=== PATIENT | male | born 1980 | race Caucasian/White ===

== ENCOUNTER 2020-01-22 12:03 | Inpatient (IN) | payer SELFPAY ==
[~2020-01-22] VITALS: Ht 177.8 cm; Wt 212.6 kg
[2020-01-22 13:11] LABS: BASO % 1 % (0-3); EOS # 0.1 x10^3/uL (0.0-0.7); EOS % 1 % (0-3); HEMATOCRIT 59.1 % (39.0-53.0); HEMOGLOBIN 19.4 g/dL (13.0-17.5); LYMPH # 1.6 x10^3/uL (1.0-4.8); LYMPH % 19 % (24-48); MEAN CORPUSCULAR HEMOGLOBIN 32 pg (25-35); MEAN CORPUSCULAR HGB CONC 33 g/dL (31-37); MEAN CORPUSCULAR VOLUME 96 fL (79-100); MONO # 0.7 x10^3/uL (0.0-1.1); MONO % 9 % (0-9); NEUT # 5.9 x10^3/uL (1.8-7.7); NEUT % 70 % (31-73); PLATELET COUNT 166 x10^3/uL (140-400); RED BLOOD COUNT 6.16 x10^6/uL (4.30-5.70); RED CELL DISTRIBUTION WIDTH 15.1 % (11.5-14.5); WHITE BLOOD COUNT 8.3 x10^3/uL (4.0-11.0)
[2020-01-22 13:15] LABS: BILIRUBIN,URINE NEGATIVE (NEG); CLARITY,URINE CLEAR; COLOR,URINE YELLOW; NITRITE,URINE NEGATIVE (NEG); PROTEIN,URINE >=300 mg/dL (NEG-TRACE); UROBILINOGEN,URINE 0.2 mg/dL (0.2 mg/dL)
--- NOTE | 2020-01-22 13:17 | RAD ---
CHEST AP ONLY History: Reason: n/v/d, PUI / Spl. Instructions: / History: Comparison: None. Findings: Evaluation is degraded by patient body habitus and technique. Patchy mid and bibasilar opacities. No definite pleural effusion. No pneumothorax. Portable technique accentuates cardiac size. Impression: 1. Patchy mid and bibasilar opacities, may represent atelectasis or consolidations. Electronically signed by: Mirza Richards DO (01/22/2020 1:15 PM) [id number]
[2020-01-22 13:26] LABS: BACTERIA,URINE 0 /HPF (0-FEW); HYALINE CASTS, URINE MANY /HPF; SQUAMOUS EPITHELIAL CELL,UR MOD /LPF
[2020-01-22 13:28] LABS: AMORPHOUS SEDIMENT,UR PRESENT /HPF; GRANULAR CASTS,URINE FEW /HPF; RBC,URINE OCC /HPF (0-2)
[2020-01-22 13:47] LABS: CALCIUM 9.3 mg/dL (8.5-10.1); GFR 84.1; POTASSIUM 4.3 mmol/L (3.5-5.1)
[2020-01-22 14:07] LABS: ALBUMIN 2.3 g/dL (3.4-5.0); ALBUMIN/GLOBULIN RATIO 0.6 (1.0-1.7); C-REACTIVE PROTEIN 5.4 mg/L (0-3.3); MAGNESIUM 1.8 mg/dL (1.8-2.4); TOTAL BILIRUBIN 0.6 mg/dL (0.2-1.0); TOTAL PROTEIN 5.9 g/dL (6.4-8.2)
[2020-01-22] MEDS ORDERED: IOHEXOL 350 MG/ML 100 ML VIAL. ONE (14:22)
--- NOTE | 2020-01-22 15:19 | RAD ---
DUPLEX LOWER EXTREMITY BILAT Indication: Reason: bilateral lower extremity discoloration and cool / Spl. Instructions: / History: Comparison: None. Procedure: Real-time grayscale, color flow Doppler, and Doppler spectral waveform analysis of the arterial system of the lower extremity is performed. Findings: Normal triphasic waveforms are present in the common femoral artery, superficial femoral artery, popliteal artery, anterior tibial artery and posterior tibial artery. Right dorsalis pedis artery not visualized, may relate to technique or patient body habitus. No evidence of velocity elevation to suggest stenosis. IMPRESSION: 1. No hemodynamically significant arterial stenosis. Electronically signed by: Mirza Richards DO (01/22/2020 3:16 PM) [id number]
--- NOTE | 2020-01-22 16:00 | PHYS DOC ---
Past Medical History Past Medical History: Hypertension, Other Additional Past Medical Histor: PSORIASIS Past Surgical History: No Surgical History Smoking Status: Current Every Day Smoker Alcohol Use: None General Adult EDM: Chief Complaint: GI PROBLEM HPI: HPI: Patient is a 39 year old morbidly obese male who presents to the emergency department with complaints of increased swelling in his abdomen and shortness of breath for the last 5 days. He reports that he smokes a pack and a half of c igarettes a day and is a concrete mixing truck driver. He denies any known exposure to COVID-19. The patient denies any fever, chills, cough, hemoptysis, dizziness, headache, sore throat, nausea, vomiting, or diarrhea. Patient reports that he took some stool softeners because he thought he might be constipated and that is why his abdomen was bloated. He denies any pain he states that his entire body feels bloated. Review of Systems: Review of Systems: Constitutional: Denies fever or chills. [] HENT: Denies nasal congestion or sore throat. [] Respiratory: Denies cough; see HPI Cardiovascular: Denies chest pain; see HPI GI: Denies nausea, vomiting, bloody stools or diarrhea; see HPI. [] : Denies dysuria or hematuria. [] Musculoskeletal: Denies back pain or joint pain. [] Integument: Reports problems with chronic psoriasis has a dry, red, scaly rash all over his entire body Neurologic: Denies headache, focal weakness or sensory changes. [] Psychiatric: Denies depression or anxiety. [] Complete ROS is negative unless otherwise stated in the HPI. Heart Score: Risk Factors: Risk Factors: DM, Current or recent (<one month) smoker, HTN, HLP, family history of CAD, obesity. Risk Scores: Score 0 - 3: 2.5% MACE over next 6 weeks - Discharge Home Score 4 - 6: 20.3% MACE over next 6 weeks - Admit for Clinical Observation Score 7 - 10: 72.7% MACE over next 6 weeks - Early Invasive Strategies Current Medications: Current Medications Medications (Trade) Dose Ordered Sig/Ely Start Time Stop Time Status Last Admin Dose Admin Iohexol (Omnipaque 350 Mg/ml) 100 ml STK-MED ONCE 01/22/20 14:22 01/22/20 14:22 DC Allergies: Allergies: Allergies Coded Allergies Type Severity Reaction Last Updated Verified naproxen Allergy Unknown 01/22/20 Yes Physical Exam: PE: Constitutional: Well developed, well nourished, moderate distress, ill- appearing, morbidly obese, patient prefers to sit straight up in a near tripod position HENT: Normocephalic, atraumatic, bilateral external ears normal, nose normal. [] Eyes: PERRLA, EOMI, conjunctiva normal, no discharge. [] Neck: Normal range of motion, no stridor. [] Cardiovascular:Heart rate regular tachycardic rhythm, no murmur Lungs & Thorax: Respirations labored, moderate respiratory distress, lung sounds diminished throughout, no wheezing, speaking full sentences Abdomen: Firm and distended with active bowel sounds x4 quadrants Skin: Warm, dry, dry flaky rash noted to face, back, trunk, chest, and extremities x4 consistent with patient's reported psoriasis Extremities: Bilateral feet appear cyanotic with weak palpable pedal pulses, no obvious deformity, cap refill less than 3 seconds, patient's lower extremities are cool to touch however when the patient is repositioned perfusion seems to improve Neurologic: Alert and oriented X 4, no focal deficits noted. [] Psychologic: Affect normal, judgement normal, mood normal. [] Current Patient Data: Labs: Laboratory Tests Test 01/22/20 13:00 01/22/20 13:27 White Blood Count 8.3 x10^3/uL (4.0-11.0) Red Blood Count 6.16 x10^6/uL (4.30-5.70) H Hemoglobin 19.4 g/dL (13.0-17.5) H Hematocrit 59.1 % (39.0-53.0) H Mean Corpuscular Volume 96 fL (79-100) Mean Corpuscular Hemoglobin 32 pg (25-35) Mean Corpuscular Hemoglobin Concent 33 g/dL (31-37) Red Cell Distribution Width 15.1 % (11.5-14.5) H Platelet Count 166 x10^3/uL (140-400) Neutrophils (%) (Auto) 70 % (31-73) Lymphocytes (%) (Auto) 19 % (24-48) L Monocytes (%) (Auto) 9 % (0-9) Eosinophils (%) (Auto) 1 % (0-3) Basophils (%) (Auto) 1 % (0-3) Neutrophils # (Auto) 5.9 x10^3/uL (1.8-7.7) Lymphocytes # (Auto) 1.6 x10^3/uL (1.0-4.8) Monocytes # (Auto) 0.7 x10^3/uL (0.0-1.1) Eosinophils # (Auto) 0.1 x10^3/uL (0.0-0.7) Basophils # (Auto) 0.0 x10^3/uL (0.0-0.2) D-Dimer (Bonnie) 1.14 ug/mlFEU (0.00-0.50) H Urine Collection Type Unknown Urine Color Yellow Urine Clarity Clear Urine pH 6.0 (<5.0-8.0) Urine Specific [place] 1.020 (1.000-1.030) Urine Protein >=300 mg/dL (NEG-TRACE) Urine Glucose (UA) Negative mg/dL (NEG) Urine Ketones (Stick) Negative mg/dL (NEG) Urine Blood Trace (NEG) Urine Nitrite Negative (NEG) Urine Bilirubin Negative (NEG) Urine Urobilinogen Dipstick 0.2 mg/dL (0.2 mg/dL) Urine Leukocyte Esterase Negative (NEG) Urine RBC Occ /HPF (0-2) Urine WBC 5-10 /HPF (0-4) Urine Squamous Epithelial Cells Mod /LPF Urine Transitional Epithelial Cells Occ /LPF Urine Renal Epithelial Cells Occ /LPF Urine Amorphous Sediment Present /HPF Urine Bacteria 0 /HPF (0-FEW) Urine Hyaline Casts Many /HPF Urine Granular Casts Few /HPF Urine Mucus Marked /LPF Sodium Level 137 mmol/L (136-145) Potassium Level 4.3 mmol/L (3.5-5.1) Chloride Level 101 mmol/L (98-107) Carbon Dioxide Level 35 mmol/L (21-32) H Anion Gap 1 (6-14) L Blood Urea Nitrogen 23 mg/dL (8-26) Creatinine 1.0 mg/dL (0.7-1.3) Estimated GFR (Cockcroft-Gault) 84.1 BUN/Creatinine Ratio 23 (6-20) H Glucose Level 212 mg/dL (70-99) H Calcium Level 9.3 mg/dL (8.5-10.1) Magnesium Level 1.8 mg/dL (1.8-2.4) Ferritin 150 ng/mL (26-388) Total Bilirubin 0.6 mg/dL (0.2-1.0) Aspartate Amino Transferase (AST) 22 U/L (15-37) Alanine Aminotransferase (ALT) 17 U/L (16-63) Alkaline Phosphatase 66 U/L (46-116) Creatine Kinase 58 U/L (39-308) C-Reactive Protein, Quantitative 5.4 mg/L (0-3.3) H Total Protein 5.9 g/dL (6.4-8.2) L Albumin 2.3 g/dL (3.4-5.0) L Albumin/Globulin Ratio 0.6 (1.0-1.7) L Lipase 83 U/L (73-393) Laboratory Tests 01/22/20 13:00 Laboratory Tests 01/22/20 13:27 Vital Signs: Vital Signs Date Time Temp Pulse Resp B/P (MAP) Pulse Ox O2 Delivery O2 Flow Rate FiO2 01/22/20 13:30 98.3 103 22 138/78 (98) 97 Nasal Cannula 4.0 98.3 EKG: EK-sinus tachycardia with abnormal right axis deviation, no STEMI, rate 102, read by Dr. Lopez Radiology/Procedures: Radiology/Procedures: PROCEDURE: CHEST AP ONLY CHEST AP ONLY History: Reason: n/v/d, PUI / Spl. Instructions: / History: Comparison: None. Findings: Evaluation is degraded by patient body habitus and technique. Patchy mid and bibasilar opacities. No definite pleural effusion. No pneumothorax. Portable technique accentuates cardiac size. Impression: 1. Patchy mid and bibasilar opacities, may represent atelectasis or consolidations. Electronically signed by: Mirza Richards DO (01/22/2020 1:15 PM) [id number][] PROCEDURE: CT ANGIOGRAPHY CHEST Study: CT CHEST WITH CONTRAST - PULMONARY ANGIOGRAM History: Elevated d-dimer. Hypoxia. Tachycardia. Pulmonary embolism. Comparison: None. Technique: Helical CT of the chest performed after the administration of 100 cc Omnipaque 350 intravenous contrast and timed for angiographic evaluation of the pulmonary arteries per PE protocol. Coronal and sagittal 3D MIP reformations were obtained. One or more of the following individualized dose reduction techniques were utilized for this examination: 1. Automated exposure control 2. Adjustment of the mA and/or kV according to patient size 3. Use of iterative reconstruction technique. Findings: Degraded study due to patient body habitus. Pulmonary Arteries: Significantly limited assessment for pulmonary emboli due to bolus timing in conjunction with patient body habitus. No saddle or central pulmonary embolism is seen but the study is nondiagnostic for more peripheral emboli. Dilated main pulmonary artery measuring 3.7 cm transverse. Heart/Systemic Vasculature: Nonaneurysmal aorta. The visualized great vessels are unremarkable. Somewhat asymmetric prominence of the right heart chambers relative to the left, image 84 series 4. Mediastinum: No lymph node is seen that meets pathologic criteria based on size. Small pericardial effusion. Lungs: Small pleural effusion on the right. There may be trace pleural fluid on the left. Patchy opacities overlying the pleural fluid at the right lower lung is in part passive atelectasis though some of the opacities are not typical of volume loss. Minimal volume loss at the left lung base. No central airway opacification. Neck/Axilla/Body Wall: The visualized thyroid is unremarkable. Several lymph nodes at both axilla are enlarged. Body wall edema progressing in extent at the lower chest through the upper abdomen. Upper Abdomen: Upper abdominal ascites seen adjacent to the liver and spleen. There appears to be some fluid surrounding the tail of the pancreas. Bones: No acute or aggressive osseous process is identified. Scattered thoracic discogenic arthrosis. Miscellaneous: None. IMPRESSION: 1. Essentially nondiagnostic evaluation for pulmonary emboli due to a combination of patient body habitus and bolus timing. No obvious saddle or main pulmonary artery embolism but more distally emboli cannot be excluded. 2. Dilated main pulmonary artery and asymmetric prominence of the right heart chambers often seen with pulmonary hypertension. 3. Small right pleural effusion and possible trace pleural fluid on the left. Right lower lung opacities overlying the fluid are in part atelectasis though an infectious infiltrate at this location is not excluded. 4. Body wall edema and upper abdominal ascites. 5. Prominent bilateral axillary lymph nodes are most likely reactive unless there is any history of malignancy. Electronically signed by: LIANET PATTERSON MD (01/22/2020 3:56 PM) [id number] PROCEDURE: DUPLEX LOWER EXTREMITY BILAT DUPLEX LOWER EXTREMITY BILAT Indication: Reason: bilateral lower extremity discoloration and cool / Spl. Instructions: / History: Comparison: None. Procedure: Real-time grayscale, color flow Doppler, and Doppler spectral waveform analysis of the arterial system of the lower extremity is performed. Findings: Normal triphasic waveforms are present in the common femoral artery, superficial femoral artery, popliteal artery, anterior tibial artery and posterior tibial artery. Right dorsalis pedis artery not visualized, may relate to technique or patient body habitus. No evidence of velocity elevation to suggest stenosis. IMPRESSION: 1. No hemodynamically significant arterial stenosis. Electronically signed by: Mirza Richards DO (01/22/2020 3:16 PM) [id number] Course & Med Decision Making: Course & Med Decision Making Pertinent Labs and Imaging studies reviewed. (See chart for details) [id number] with Dr. Sotelo who is the admitting physician, and care was assumed following discussion of patient. Will order a ultrasound of lower extremities rule out DVT or arterial occlusion, advised of pending CT chest results, we will also order ABG. Patient's vital signs stable. Patient remains afebrile, appears ill, respirations unlabored. Patient will be admitted to the CVC floor. Patient's case and plan of care also discussed with COVID-19 CRITERIA: The patient was evaluated during the global COVID-19 pand emic, and that diagnosis was suspected/considered upon their initial presentation. Their evaluation, treatment and testing was consistent with current guidelines for patients who present with complaints or symptoms that may be related to COVID-19. [] Dragon Disclaimer: Dragon Disclaimer: This electronic medical record was generated, in whole or in part, using a voice recognition dictation system. Departure Departure Impression: Primary Impression: Person under investigation for COVID-19 Additional Impressions: SOB (shortness of breath) Elevated d-dimer Disposition: ADMITTED INPATIENT Admitting Physician: HARPER Balderas) Condition: STABLE Referrals: KRYSTAL CHAUDHARY MD (PCP) Justicifation of Admission Dx: Justifications for Admission: Justification of Admission Dx: Yes Respiratory Failure: Severe Resp Distress COVID-19 Assessment: COVID-19 Patient Risks: Age 65 or older: No Sign of co-morbidity: Yes Exp to person + for COVID: No Exp to PUI: No Travel from affected area: No Lower respiratory symptoms: Yes Fever: No PPE Use: Full PPE with N95 mask or PAPR: Yes SHELBY WHITE APRN Jan 22, 2020 16:00
[2020-01-22] MEDS ORDERED: LORazepam 0.5 MG TABLET PO PRN (16:30)
[2020-01-22] MEDS ORDERED: guaiFENesin ORAL 200 MG/10 ML LIQUID. PO PRN (16:30)
[2020-01-22] MEDS ORDERED: ALBUTEROL SULFATE 2.5 MG/3 ML NEBU. NEB PRN (16:30)
[2020-01-22] MEDS ORDERED: DOCUSATE SODIUM 100 MG CAPSULE. PO PRN (16:30)
[2020-01-22] MEDS ORDERED: ENOXAPARIN 40 MG/0.4 ML SYRINGE. SQ SCH (16:30)
[2020-01-22] MEDS ORDERED: ACETAMINOPHEN 325 MG TABLET. PO PRN (16:30)
[2020-01-22] MEDS ORDERED: ONDANSETRON PF 4 MG/2 ML VIAL. IV PRN (16:30)
--- NOTE | 2020-01-22 17:30 | NUR ---
Pt arrived by cart from ER. Was able to ambulate to the bathroom, have a BM and walk to the bed. RT was there to apply the Bipap. I placed call to Dr Stock to ask about additional mediations. Pt alert and oriented at this time. Shortness of breath noted. Sats 96% on bipap.
--- NOTE | 2020-01-22 18:20 | PDOC1 ---
History and Physical Date of Admission Date of Admission 01/22/2020 Identification/Chief Complaint Chief Complaint I could not breathe Source Source: Chart review, Patient History of Present Illness History of Present Illness Patient is a 39-year-old gentleman with past medical history of psoriasis which is quite extensive who was in his usual state of health until approximately 5 days prior to his admission. The patient complained of generalized edema and feeling bloated. The patient even took stool softeners in order to have a bowel movement since he thought that he was constipated. The patient is morbidly obese with a BMI of 67. The patient denies any sick contacts no fever chills no upper respiratory tract infections. The patient laboratory data has been reviewed and CAT scan of his chest was done with no obvious saddle embolism to explain his symptoms. The patient was found to be in acute respiratory failure with hypercapnia reason why we were asked to admit the patient for further e valuation and treatment. At the time my evaluation the patient is awake alert oriented and in no acute distress. The patient is able to answer all questions. Patient denies any nausea vomiting no diarrhea he denies any changes to his diet. I have explained the plan of care in detail and answer all his concerns to the best of my abilities. He will be investigated for COVID-19 given the elevated d-dimer and changes to his chest x-ray noted with groundglass appearance. Very low suspicion at this point. His respiratory abnormality is most likely secondary to his morbid obesity Past Medical History Past Medical History Psoriasis Past Surgical History Past Surgical History: No pertinent history Family History Family History: No Significant Social History Smoke: # pack years (15) ALCOHOL: none Drugs: None Current Medications Current Medications Current Medications Medications (Trade) Dose Ordered Sig/Ely Start Time Stop Time Status Last Admin Dose Admin Acetaminophen (Tylenol) 650 mg PRN Q4HRS PRN 01/22/20 16:30 Albuterol Sulfate (Ventolin Neb Soln) 2.5 mg PRN Q4HRS PRN 01/22/20 16:30 Docusate Sodium (Colace) 100 mg PRN BID PRN 01/22/20 16:30 Enoxaparin Sodium (Lovenox 40mg Syringe) 40 mg Q24H 01/22/20 16:30 UNV Enoxaparin Sodium (Lovenox 60mg Syringe) 60 mg Q12HR 01/22/20 21:00 Guaifenesin (Robitussin) 200 mg PRN Q4HRS PRN 01/22/20 16:30 Iohexol (Omnipaque 350 Mg/ml) 100 ml STK-MED ONCE 01/22/20 14:22 01/22/20 14:22 DC Lorazepam (Ativan) 0.5 mg PRN Q4HRS PRN 01/22/20 16:30 Ondansetron HCl (Zofran) 4 mg PRN Q4HRS PRN 01/22/20 16:30 Allergies Allergies Allergies Coded Allergies Type Severity Reaction Last Updated Verified naproxen Allergy Unknown 01/22/20 Yes ROS Review of System CONSTITUTIONAL: No fever or chills EYES: No recent changes SKIN: No rash or itching CARDIOVASCULAR: No chest pain, syncope, palpitations, or edema RESPIRATORY: No SOB or cough GASTROINTESTINAL: No nausea, vomiting or abdominal pain NEUROLOGICAL: No headaches or weakness ENDOCRINE: No cold or heat intolerance GENITOURINARY: No urgency or frequency of urination MUSCULOSKELETAL: No back pain or joint pain LYMPHATICS: No enlarged lymph nodes PSYCHIATRIC: No anxiety or depression Physical Exam Physical Exam GEN.: No apparent distress. Alert and oriented. HEENT: Head is normocephalic, atraumatic NECK: Supple. LUNGS: Clear to auscultation. HEART: RRR, S1, S2 present. Peripheral pulses intact ABDOMEN: Soft, nontender. Positive bowel sounds. EXTREMITIES: Without any cyanosis. NEUROLOGIC: Normal speech, normal tone PSYCHIATRIC: Normal affect, normal mood. SKIN: No ulcerations Vitals Vitals Vital Signs Date Time Temp Pulse Resp B/P (MAP) Pulse Ox O2 Delivery O2 Flow Rate FiO2 01/22/20 17:35 97 BiPAP/CPAP 01/22/20 17:00 72 18 136/103 (114) 4.0 01/22/20 13:30 98.3 98.3 Labs Labs Laboratory Tests Test 01/22/20 13:00 01/22/20 13:27 White Blood Count 8.3 x10^3/uL (4.0-11.0) Red Blood Count 6.16 x10^6/uL (4.30-5.70) Hemoglobin 19.4 g/dL (13.0-17.5) Hematocrit 59.1 % (39.0-53.0) Mean Corpuscular Volume 96 fL (79-100) Mean Corpuscular Hemoglobin 32 pg (25-35) Mean Corpuscular Hemoglobin Concent 33 g/dL (31-37) Red Cell Distribution Width 15.1 % (11.5-14.5) Platelet Count 166 x10^3/uL (140-400) Neutrophils (%) (Auto) 70 % (31-73) Lymphocytes (%) (Auto) 19 % (24-48) Monocytes (%) (Auto) 9 % (0-9) Eosinophils (%) (Auto) 1 % (0-3) Basophils (%) (Auto) 1 % (0-3) Neutrophils # (Auto) 5.9 x10^3/uL (1.8-7.7) Lymphocytes # (Auto) 1.6 x10^3/uL (1.0-4.8) Monocytes # (Auto) 0.7 x10^3/uL (0.0-1.1) Eosinophils # (Auto) 0.1 x10^3/uL (0.0-0.7) Basophils # (Auto) 0.0 x10^3/uL (0.0-0.2) D-Dimer (Bonnie) 1.14 ug/mlFEU (0.00-0.50) Urine Collection Type Unknown Urine Color Yellow Urine Clarity Clear Urine pH 6.0 (<5.0-8.0) Urine Specific [place] 1.020 (1.000-1.030) Urine Protein >=300 mg/dL (NEG-TRACE) Urine Glucose (UA) Negative mg/dL (NEG) Urine Ketones (Stick) Negative mg/dL (NEG) Urine Blood Trace (NEG) Urine Nitrite Negative (NEG) Urine Bilirubin Negative (NEG) Urine Urobilinogen Dipstick 0.2 mg/dL (0.2 mg/dL) Urine Leukocyte Esterase Negative (NEG) Urine RBC Occ /HPF (0-2) Urine WBC 5-10 /HPF (0-4) Urine Squamous Epithelial Cells Mod /LPF Urine Transitional Epithelial Cells Occ /LPF Urine Renal Epithelial Cells Occ /LPF Urine Amorphous Sediment Present /HPF Urine Bacteria 0 /HPF (0-FEW) Urine Hyaline Casts Many /HPF Urine Granular Casts Few /HPF Urine Mucus Marked /LPF Sodium Level 137 mmol/L (136-145) Potassium Level 4.3 mmol/L (3.5-5.1) Chloride Level 101 mmol/L (98-107) Carbon Dioxide Level 35 mmol/L (21-32) Anion Gap 1 (6-14) Blood Urea Nitrogen 23 mg/dL (8-26) Creatinine 1.0 mg/dL (0.7-1.3) Estimated GFR (Cockcroft-Gault) 84.1 BUN/Creatinine Ratio 23 (6-20) Glucose Level 212 mg/dL (70-99) Calcium Level 9.3 mg/dL (8.5-10.1) Magnesium Level 1.8 mg/dL (1.8-2.4) Ferritin 150 ng/mL (26-388) Total Bilirubin 0.6 mg/dL (0.2-1.0) Aspartate Amino Transf (AST/SGOT) 22 U/L (15-37) Alanine Aminotransferase (ALT/SGPT) 17 U/L (16-63) Alkaline Phosphatase 66 U/L (46-116) Creatine Kinase 58 U/L (39-308) C-Reactive Protein, Quantitative 5.4 mg/L (0-3.3) Total Protein 5.9 g/dL (6.4-8.2) Albumin 2.3 g/dL (3.4-5.0) Albumin/Globulin Ratio 0.6 (1.0-1.7) Lipase 83 U/L (73-393) Laboratory Tests Test 01/22/20 13:00 01/22/20 13:27 White Blood Count 8.3 x10^3/uL (4.0-11.0) Red Blood Count 6.16 x10^6/uL (4.30-5.70) Hemoglobin 19.4 g/dL (13.0-17.5) Hematocrit 59.1 % (39.0-53.0) Mean Corpuscular Volume 96 fL (79-100) Mean Corpuscular Hemoglobin 32 pg (25-35) Mean Corpuscular Hemoglobin Concent 33 g/dL (31-37) Red Cell Distribution Width 15.1 % (11.5-14.5) Platelet Count 166 x10^3/uL (140-400) Neutrophils (%) (Auto) 70 % (31-73) Lymphocytes (%) (Auto) 19 % (24-48) Monocytes (%) (Auto) 9 % (0-9) Eosinophils (%) (Auto) 1 % (0-3) Basophils (%) (Auto) 1 % (0-3) Neutrophils # (Auto) 5.9 x10^3/uL (1.8-7.7) Lymphocytes # (Auto) 1.6 x10^3/uL (1.0-4.8) Monocytes # (Auto) 0.7 x10^3/uL (0.0-1.1) Eosinophils # (Auto) 0.1 x10^3/uL (0.0-0.7) Basophils # (Auto) 0.0 x10^3/uL (0.0-0.2) D-Dimer (Bonnie) 1.14 ug/mlFEU (0.00-0.50) Urine Collection Type Unknown Urine Color Yellow Urine Clarity Clear Urine pH 6.0 (<5.0-8.0) Urine Specific [place] 1.020 (1.000-1.030) Urine Protein >=300 mg/dL (NEG-TRACE) Urine Glucose (UA) Negative mg/dL (NEG) Urine Ketones (Stick) Negative mg/dL (NEG) Urine Blood Trace (NEG) Urine Nitrite Negative (NEG) Urine Bilirubin Negative (NEG) Urine Urobilinogen Dipstick 0.2 mg/dL (0.2 mg/dL) Urine Leukocyte Esterase Negative (NEG) Urine RBC Occ /HPF (0-2) Urine WBC 5-10 /HPF (0-4) Urine Squamous Epithelial Cells Mod /LPF Urine Transitional Epithelial Cells Occ /LPF Urine Renal Epithelial Cells Occ /LPF Urine Amorphous Sediment Present /HPF Urine Bacteria 0 /HPF (0-FEW) Urine Hyaline Casts Many /HPF Urine Granular Casts Few /HPF Urine Mucus Marked /LPF Sodium Level 137 mmol/L (136-145) Potassium Level 4.3 mmol/L (3.5-5.1) Chloride Level 101 mmol/L (98-107) Carbon Dioxide Level 35 mmol/L (21-32) Anion Gap 1 (6-14) Blood Urea Nitrogen 23 mg/dL (8-26) Creatinine 1.0 mg/dL (0.7-1.3) Estimated GFR (Cockcroft-Gault) 84.1 BUN/Creatinine Ratio 23 (6-20) Glucose Level 212 mg/dL (70-99) Calcium Level 9.3 mg/dL (8.5-10.1) Magnesium Level 1.8 mg/dL (1.8-2.4) Ferritin 150 ng/mL (26-388) Total Bilirubin 0.6 mg/dL (0.2-1.0) Aspartate Amino Transf (AST/SGOT) 22 U/L (15-37) Alanine Aminotransferase (ALT/SGPT) 17 U/L (16-63) Alkaline Phosphatase 66 U/L (46-116) Creatine Kinase 58 U/L (39-308) C-Reactive Protein, Quantitative 5.4 mg/L (0-3.3) Total Protein 5.9 g/dL (6.4-8.2) Albumin 2.3 g/dL (3.4-5.0) Albumin/Globulin Ratio 0.6 (1.0-1.7) Lipase 83 U/L (73-393) VTE Prophylaxis Ordered VTE Prophylaxis Devices: No VTE Pharmacological Prophylaxi: Yes Assessment/Plan Assessment/Plan Acute hypercapnic respiratory failure Morbid obesity Polycythemia vera? Psoriasis Obesity hypoventilation syndrome Plan We will order EPO level We will order Tom 2 mutation to evaluate for possible myeloproliferative disorder We will consult pulmonology for the acute hypercapnic respiratory failure Patient certainly will require evaluation moving forward by a bariatric surgery team given that his life expectancy will certainly be quite short if he does not lose weight BiPAP as per hadoop consultant DVT prophylaxis with Lovenox Justifications for Admission Other Justification PRIYA GARZA MD Jan 22, 2020 18:20
--- NOTE | 2020-01-22 18:40 | NUR ---
Was notified by RT that pt was sleeping and setting on bipap were adjusted to 20/6.
--- NOTE | 2020-01-22 19:00 | NUR ---
Pt very difficult to arose and diminished breath sounds. [facility] nurse Trista here to see patient. ABG done. ICU to notify pulmonary. Will continue to monitor.
[2020-01-22 19:28] LABS: BASE EXCESS ABG 7 mmol/L (-3-3); HCO3 ABG 37 mmol/L (21-28); PO2 ABG 70 mmHg (85-108)
--- NOTE | 2020-01-22 19:29 | NUR ---
Pt placed on heart monitor and rhythm is sinus in the 80s. No arrthymias noted.
--- NOTE | 2020-01-22 19:45 | NUR ---
Rapid Response Note: Rapid response called by patient's RN for decreased LOC. RN states patient would not arouse even to sternal rub. Upon arrival, patient's name was called and shoulder shook and patient arroused and was oriented x4. ABGs completed and resulted pH7.3, pCO2 75.8, pO2 69.6, HCO3 35.5; patient is cooperative, follows all commands, Lung sounds are extremely decreased and are heart tones. Patient has a large barreled chest and is obese.Current BiPap setting I/E20/6, rate 20 and FiO2 248%. Dr Montrell almeida, returned page and notified of above and plan to call pulmonary for possible vent setting. Dr Campos almeida, returned page and notified of above. Orders received to increased BiPap rate to 24, Keep oxgen at lowest amount for O2 sat to be 90, and ABGs in am. Patient notified of above and denied and questions. See orders. Addendum: 01/23/20 at 0937 by PERRI MATAMOROS RN Amended: Links added.
[2020-01-22 19:58] VITALS: BP 161/124
--- NOTE | 2020-01-22 20:56 | NUR ---
Pt restless. He stated "I don't know if i can handle wearing this". Explained the risk and benefits of wearing the bipap. Ativan given to help pt tolerate the bipap. Will continue to monitor.
--- NOTE | 2020-01-22 22:11 | NUR ---
Pt resting comfortably with bipap on.
[2020-01-22 23:14] VITALS: BP 143/97
[2020-01-23 00:30] LABS: PCO2 ABG 76 mmHg (35-46)
[2020-01-23 00:31] LABS: FIO2 ABG 28
[2020-01-23 03:45] VITALS: BP 161/79
[2020-01-23 07:15] VITALS: BP 137/81
[2020-01-23 07:50] LABS: BASE EXCESS ABG 5 mmol/L (-3-3); HCO3 ABG 34 mmol/L (21-28); PO2 ABG 52 mmHg (85-108); SAT O2 ABG 87 % (92-99)
[2020-01-23 07:52] LABS: PCO2 ABG 60 mmHg (35-46)
[2020-01-23 07:53] LABS: FIO2 ABG 21
--- NOTE | 2020-01-23 08:56 | CONS ---
DATE OF CONSULTATION: 01/23/2020 I was asked to see this 39-year-old gentleman for acute on chronic respiratory failure. HISTORY OF PRESENT ILLNESS: He has history of [id number] smoking, continues to smoke. He has obstructive sleep apnea-hypopnea syndrome, had a sleep study done a few years ago. He was told he does require CPAP, but he never got his machine because he did not think he will be able to tolerate. He presented to the Emergency Room with increased shortness of breath, abdominal edema, lower extremity edema. He has shortness of breath. He does have cough. Denies fever or chills. His ABG yesterday showed pH 7.3, pCO2 of 76, pO2 of 70 on 28% FiO2. I did start him on BiPAP 20/6, rate of 24, FiO2 of 28%. This morning, he is now off BiPAP. He appears comfortable. He said his shortness of breath is resolved, although the nurse observed him having tachypnea going to the bathroom, which he says it is his usual. He denies known COVID-19 exposure. PAST MEDICAL HISTORY: Hypertension, obstructive sleep apnea-hypopnea syndrome, psoriasis. ALLERGIES: NAPROSYN. MEDICATIONS: Currently, he is on Lovenox 60 mg every 12. SOCIAL HISTORY: History of [id number] smoking, continues to smoke. FAMILY HISTORY: Hypertension. REVIEW OF SYSTEMS: As mentioned as above, other systems are otherwise negative. PHYSICAL EXAMINATION: GENERAL: He is a morbidly obese gentleman. His BMI is 67.3. VITAL SIGNS: O2 saturation on room air 89%, respiratory rate 20, heart rate 89, blood pressure 161/79, temperature 97.7. HEENT: Normocephalic, atraumatic. NECK: Short and thick. CARDIOVASCULAR: Regular rate and rhythm. CHEST: On chest inspection, there is no paradoxical abdominal motion. ABDOMEN: Obese. EXTREMITIES: There is edema. SKIN: No rash. LABORATORY DATA: I reviewed the following lab data: ABG as mentioned as above this morning. ABG on room air; pH 7.37, pCO2 of 60, pO2 of 52. Sodium 137, potassium 4.3, chloride 101, CO2 of 35, BUN 23, creatinine 1. WBC 8.3, hemoglobin 19.4, platelets 166. D-dimer 1.14. CT angiogram was a poor study, did not show a large pulmonary embolism, dilated pulmonary arteries noted, small right pleural effusion, trace left pleural effusion, bibasilar atelectasis. IMPRESSION: 1. Acute on chronic respiratory failure, multifactorial in etiology, including untreated obstructive sleep apnea-hypopnea syndrome and obesity hypoventilation syndrome, chronic obstructive pulmonary disease, acute diastolic congestive heart failure versus others. 2. Abnormal CT of the chest. 3. Obstructive sleep apnea-hypopnea syndrome and obesity hypoventilation syndrome. 4. Smoker chronic obstructive pulmonary disease. 5. Acute diastolic congestive heart failure. 6. COVID-19 patient under investigation. 7. Hypertension. 8. Morbid obesity. PLAN AND RECOMMENDATIONS: 1. Titrate FiO2 to keep O2 saturation 90%. 2. Continue BiPAP p.r.n. during day, continuously at night. 3. Follow up COVID-19 testing. 4. Echocardiogram when able. 5. I have discussed obstructive sleep apnea-hypopnea syndrome, the importance of treatment; if untreated, increased cardiovascular and [employer] morbidity and mortality. He would require treatment. If we are not able to obtain his sleep study, he would require a repeat sleep study. 6. I had a long discussion with him regarding the smoking cessation. I have advised him to stop smoking forever. 7. Bronchodilator p.r.n. 8. I agree with aggressive DVT prophylaxis. 9. Lose weight and exercise. 10. He would require 6-minute walk at discharge. 11. The findings and recommendations were discussed with the patient and attending physician, Dr. Stock, and RN and RT. Thank you very much for allowing me to participate in care of this very nice gentleman. YASSINE OVALLE M.D. : Jolie JOB#: [id number] / [id number]
--- NOTE | 2020-01-23 10:27 | PDOC ---
PROGRESS NOTES Date of Service: DATE: 01/23/20 TIME: 10:27 Chief Complaint Chief Complaint VTE Prophylaxis Ordered VTE Prophylaxis Devices: No VTE Pharmacological Prophylaxi: Yes IMPRESSION Assessment/Plan Acute hypercapnic respiratory failure Morbid obesity Polycythemia vera? Psoriasis Obesity hypoventilation syndrome Right lower lung opacities overlying the fluid are in part atelectasis though an infectious infiltrate at this location is not excluded./ pui Plan EPO level Tom 2 mutation to evaluate for possible myeloproliferative disorder consult pulmonology for the acute hypercapnic respiratory failure Patient certainly will require evaluation moving forward by a bariatric surgery team given that his life expectancy will certainly be quite short if he does not lose weight BiPAP as per it sales consultant DVT prophylaxis with Lovenox needs dpoa 39 min pt exam, chart review, > 50% of time spent with exam, chart review, pt care coordination Justifications for Admission Justifications for Admission Other Justification HYPERCAPNIC RESP FAILURE History of Present Illness History of Present Illness Identification/Chief Complaint Chief Complaint I could not breathe Source Source: Chart review, Patient History of Present Illness History of Present Illness Patient is a 39-year-old gentleman with past medical history of psoriasis which is quite extensive who was in his usual state of health until approximately 5 days prior to his admission. The patient complained of generalized edema and feeling bloated. The patient even took stool softeners in order to have a bowel movement since he thought that he was constipated. The patient is morbidly obese with a BMI of 67. The patient denies any sick contacts no fever chills no upper respiratory tract infections. The patient laboratory data has been reviewed and CAT scan of his chest was done with no obvious saddle embolism to explain his symptoms. The patient was found to be in acute respiratory failure with hypercapnia reason why we were asked to admit the patient for further evaluation and treatment. At the time my evaluation the patient is awake alert oriented and in no acute distress. The patient is able to answer all questions. Patient denies any nausea vomiting no diarrhea he denies any changes to his diet. I have explained the plan of care in detail and answer all his concerns to the best of my abilities. He will be investigated for COVID-19 given the elevated d-dimer and changes to his chest x-ray noted with groundglass appearance. Very low suspicion at this point. His respiratory abnormality is most likely secondary to his morbid obesity Past Medical History Past Medical History Psoriasis Past Surgical History Past Surgical History: No pertinent history Family History Family History: No Significant Social History Smoke: # pack years (15) ALCOHOL: none Drugs: None Vitals Vitals Vital Signs Date Time Temp Pulse Resp B/P (MAP) Pulse Ox O2 Delivery O2 Flow Rate FiO2 01/23/20 07:15 98.1 92 24 137/81 (99) 89 Nasal Cannula 1.0 98.1 Physical Exam Physical Exam Physical Exam GEN.: No apparent distress. Alert and oriented. HEENT: Head is normocephalic, atraumatic NECK: Supple. LUNGS: Clear to auscultation. HEART: RRR, S1, S2 present. Peripheral pulses intact ABDOMEN: Soft, nontender. Positive bowel sounds. EXTREMITIES: Without any cyanosis. NEUROLOGIC: Normal speech, normal tone PSYCHIATRIC: Normal affect, normal mood. SKIN: psoriatic lesions, several General: Alert, Oriented X3, Cooperative, No acute distress Abdomen: Soft Extremities: No cyanosis Skin: No significant lesion, Other (psoriatic chs elbows, upper arms, chest) Labs LABS Study: CT CHEST WITH CONTRAST - PULMONARY ANGIOGRAM History: Elevated d-dimer. Hypoxia. Tachycardia. Pulmonary embolism. Comparison: None. Technique: Helical CT of the chest performed after the administration of 100 cc Omnipaque 350 intravenous contrast and timed for angiographic evaluation of the pulmonary arteries per PE protocol. Coronal and sagittal 3D MIP reformations were obtained. One or more of the following individualized dose reduction techniques were utilized for this examination: 1. Automated exposure control 2. Adjustment of the mA and/or kV according to patient size 3. Use of iterative reconstruction technique. Findings: Degraded study due to patient body habitus. Pulmonary Arteries: Significantly limited assessment for pulmonary emboli due to bolus timing in conjunction with patient body habitus. No saddle or central pulmonary embolism is seen but the study is nondiagnostic for more peripheral emboli. Dilated main pulmonary artery measuring 3.7 cm transverse. Heart/Systemic Vasculature: Nonaneurysmal aorta. The visualized great vessels are unremarkable. Somewhat asymmetric prominence of the right heart chambers relative to the left, image 84 series 4. Mediastinum: No lymph node is seen that meets pathologic criteria based on size. Small pericardial effusion. Lungs: Small pleural effusion on the right. There may be trace pleural fluid on the left. Patchy opacities overlying the pleural fluid at the right lower lung is in part passive atelectasis though some of the opacities are not typical of volume loss. Minimal volume loss at the left lung base. No central airway opacification. Neck/Axilla/Body Wall: The visualized thyroid is unremarkable. Several lymph nodes at both axilla are enlarged. Body wall edema progressing in extent at the lower chest through the upper abdomen. Upper Abdomen: Upper abdominal ascites seen adjacent to the liver and spleen. There appears to be some fluid surrounding the tail of the pancreas. Bones: No acute or aggressive osseous process is identified. Scattered thoracic discogenic arthrosis. Miscellaneous: None. IMPRESSION: 1. Essentially nondiagnostic evaluation for pulmonary emboli due to a combination of patient body habitus and bolus timing. No obvious saddle or main pulmonary artery embolism but more distally emboli cannot be excluded. 2. Dilated main pulmonary artery and asymmetric prominence of the right heart chambers often seen with pulmonary hypertension. 3. Small right pleural effusion and possible trace pleural fluid on the left. Right lower lung opacities overlying the fluid are in part atelectasis though an infectious infiltrate at this location is not excluded. 4. Body wall edema and upper abdominal ascites. 5. Prominent bilateral axillary lymph nodes are most likely reactive unless there is any history of malignancy. Electronically signed by: LIANET PATTERSON MD (01/22/2020 3:56 PM) [id number] Laboratory Tests Test 01/22/20 13:00 01/22/20 13:27 01/22/20 17:50 01/22/20 19:02 White Blood Count 8.3 x10^3/uL (4.0-11.0) Red Blood Count 6.16 x10^6/uL (4.30-5.70) Hemoglobin 19.4 g/dL (13.0-17.5) Hematocrit 59.1 % (39.0-53.0) Mean Corpuscular Volume 96 fL (79-100) Mean Corpuscular Hemoglobin 32 pg (25-35) Mean Corpuscular Hemoglobin Concent 33 g/dL (31-37) Red Cell Distribution Width 15.1 % (11.5-14.5) Platelet Count 166 x10^3/uL (140-400) Neutrophils (%) (Auto) 70 % (31-73) Lymphocytes (%) (Auto) 19 % (24-48) Monocytes (%) (Auto) 9 % (0-9) Eosinophils (%) (Auto) 1 % (0-3) Basophils (%) (Auto) 1 % (0-3) Neutrophils # (Auto) 5.9 x10^3/uL (1.8-7.7) Lymphocytes # (Auto) 1.6 x10^3/uL (1.0-4.8) Monocytes # (Auto) 0.7 x10^3/uL (0.0-1.1) Eosinophils # (Auto) 0.1 x10^3/uL (0.0-0.7) Basophils # (Auto) 0.0 x10^3/uL (0.0-0.2) D-Dimer (Bonnie) 1.14 ug/mlFEU (0.00-0.50) Urine Collection Type Unknown Urine Color Yellow Urine Clarity Clear Urine pH 6.0 (<5.0-8.0) Urine Specific [place] 1.020 (1.000-1.030) Urine Protein >=300 mg/dL (NEG-TRACE) Urine Glucose (UA) Negative mg/dL (NEG) Urine Ketones (Stick) Negative mg/dL (NEG) Urine Blood Trace (NEG) Urine Nitrite Negative (NEG) Urine Bilirubin Negative (NEG) Urine Urobilinogen Dipstick 0.2 mg/dL (0.2 mg/dL) Urine Leukocyte Esterase Negative (NEG) Urine RBC Occ /HPF (0-2) Urine WBC 5-10 /HPF (0-4) Urine Squamous Epithelial Cells Mod /LPF Urine Transitional Epithelial Cells Occ /LPF Urine Renal Epithelial Cells Occ /LPF Urine Amorphous Sediment Present /HPF Urine Bacteria 0 /HPF (0-FEW) Urine Hyaline Casts Many /HPF Urine Granular Casts Few /HPF Urine Mucus Marked /LPF Sodium Level 137 mmol/L (136-145) Potassium Level 4.3 mmol/L (3.5-5.1) Chloride Level 101 mmol/L (98-107) Carbon Dioxide Level 35 mmol/L (21-32) Anion Gap 1 (6-14) Blood Urea Nitrogen 23 mg/dL (8-26) Creatinine 1.0 mg/dL (0.7-1.3) Estimated GFR (Cockcroft-Gault) 84.1 BUN/Creatinine Ratio 23 (6-20) Glucose Level 212 mg/dL (70-99) Calcium Level 9.3 mg/dL (8.5-10.1) Magnesium Level 1.8 mg/dL (1.8-2.4) Ferritin 150 ng/mL (26-388) Total Bilirubin 0.6 mg/dL (0.2-1.0) Aspartate Amino Transf (AST/SGOT) 22 U/L (15-37) Alanine Aminotransferase (ALT/SGPT) 17 U/L (16-63) Alkaline Phosphatase 66 U/L (46-116) Creatine Kinase 58 U/L (39-308) C-Reactive Protein, Quantitative 5.4 mg/L (0-3.3) Total Protein 5.9 g/dL (6.4-8.2) Albumin 2.3 g/dL (3.4-5.0) Albumin/Globulin Ratio 0.6 (1.0-1.7) Lipase 83 U/L (73-393) Arterial Blood pH 7.30 (7.35-7.45) Arterial Blood pCO2 at Patient Temp 76 mmHg (35-46) Arterial Blood pO2 at Patient Temp 70 mmHg (85-108) Arterial Blood HCO3 37 mmol/L (21-28) Arterial Blood Base Excess 7 mmol/L (-3-3) FiO2 28 Glucose (Fingerstick) 133 mg/dL (70-99) Test 01/23/20 07:35 O2 Saturation 87 % (92-99) Arterial Blood pH 7.37 (7.35-7.45) Arterial Blood pCO2 at Patient Temp 60 mmHg (35-46) Arterial Blood pO2 at Patient Temp 52 mmHg (85-108) Arterial Blood HCO3 34 mmol/L (21-28) Arterial Blood Base Excess 5 mmol/L (-3-3) FiO2 21 Assessment and Plan Assessmemt and Plan Problems Medical Problems: (1) Elevated d-dimer Status: Acute (2) Person under investigation for COVID-19 Status: Acute (3) SOB (shortness of breath) Status: Acute DPOA REVIEW 18 MIN What Is a Power of Jewelry Estimator? A power of contract attorney (POA) is a legal document giving one person (the agent or prlkdgmc-el-byzm) the power to act for another person (the principal). The agent can have broad legal authority or limited authority to make legal decisions about the principal's property, finances or medical care. The power of contract attorney is frequently used in the event of a principal's illness or disability, or when the principal can't be present to sign necessary legal documents for financial transactions. A power of contract attorney can end for a number of reasons, such as when the principal dies, the principal revokes it, a court invalidates it, the principal divorces their spouse, who happens to be the agent, or the agent can no longer carry out the outlined responsibilities. Conventional POAs lapse when the creator becomes incapacitated, but a durable POA remains in force to enable the agent to manage the creators affairs, and a springing POA comes into effect only if and when the creator of the POA becomes incapacitated. A medical or healthcare POA enables an agent to make medical decisions on behalf of an incapacitated person. [employer] A power of contract attorney (POA) is a legal document giving one person, the agent or euclebrz-pj-jzkh the power to act for another person, the principal. The agent can have broad legal authority or limited authority to make decisions about the principal's property, finances or medical care. The power of contract attorney is often used when a principal becomes ill or disabled, or when they can't be present to sign necessary legal documents for financial transactions. Understanding Power of Jewelry Estimator A power of contract attorney should be considered when planning for long-term care. There are different types of POAs that fall under either a general power of contract attorney or limited power of contract attorney. A general power of contract attorney acts on behalf of the principal in any and all urvashi ers, as allowed by the state. The agent under a general POA agreement may be authorized to take care of issues such as handling bank accounts, signing checks, selling property and assets like stocks, f A limited power of contract attorney gives the agent the power to act on behalf of the principal in specific matters or events. For example, the limited POA may explicitly state that the agent is only allowed to manage the principal's alf accounts. A limited POA may also be limited to a specific period of time (e.g., if the principal will be out of the country for, say, two years). Most lerma of contract attorney documents allow an agent to represent the principal in all property and financial matters as long as the principals mental state of mind is good. If a situation occurs where the principal becomes incapable of making decisions for him or herself, the POA agreement would automatically end. However, someone who wants the POA to remain in effect after the persons health deteriorates would need to sign a durable power of contract attorney (DPOA). :A person appointed as power of contract attorney is not necessarily an contract attorney. The person could just be a trusted family member, friend, or acquaintance. Understanding the Durable Power of Jewelry Estimator (DPOA) The durable power of contract attorney (DPOA) remains in control of certain legal, property or financial matters specifically spelled out in the agreement, even after the principal becomes mentally incapacitated. While a DPOA can pay medical bills on behalf of the principal, the durable agent cannot make decisions related to the principal's health (e.g., taking the principal off life support is not up to a DPOA). principal can sign a durable power of contract attorney for health care, or healthcare power of contract attorney (HCPA), if he wants an agent to have the power to make health- related decisions. This document also called a healthcare proxy, outlines the principals consent to give the agent POA privileges in the event of an unfortunate medical condition. The durable POA for healthcare is legally bound to oversee medical care decisions on behalf of the principal. Another type of DPOA is the durable power of contract attorney for finances, or simply a financial power of contract attorney. This document allows an agent to manage the business and financial affairs of the principal, such as signing checks, filing tax returns, mailing and depositing Social Security checks and managing invest ment accounts, in the event, the latter becomes unable to understand or make decisions. To the extent of what the agreement spells out as the agents responsibility, the agent has to carry out the principals wishes to the best of his ability. When the agent acts on behalf of the principal by making investment decisions through the merchandising professor or medical decisions through the healthcare professional, both institutions would ask to see the DPOA. Although the DPOA for both medical and financial matters can be one document, it is good to have separate DPOA for healthcare and finances. Since the DPOA for healthcare will have the principal's personal medical information, it would be inappropriate for the merchandising professor to have it, and the medical consultant dont need to know the financial status of the patient either. conditions for which a durable POA may become active are set up in a document called the springing power of contract attorney. The springing POA defines the kind of event or level of incapacitation that should occur before the DPOA springs into effect. A power of contract attorney can remain dormant until a negative health occurrence activates it to a DPOA. How Power of Jewelry Estimator Works You can buy or download a power of contract attorney template. If you do, be sure it is for your state, as requirements differ. However, this document may be too important to leave to the chance that you got the correct form and handled it properly. A better way to start the process of establishing a power of contract attorney is by locating an contract attorney who specializes in family law in your state. If contract attorney's fees are more than you can afford, legal services offices staffed with credentialed attorneys exist in virtually every part of the [place]. Visit the [employer]'s website, which has a "Find Rn Cardiac Cath" search function. Clients who qualify will receive [place] (cost-free) assistance Many states require that the signature of the principal (the person who initiates the POA) be notarized. Some states also require that witnesses' signatures be notarized. The following provisos apply generally, nationwide, and everyone who needs to create a POA should be aware of them: There is no standard POA form for all 50 states; state law and procedures vary All states accept some version of the durable power of contract attorney A few cook lerma cannot be delegated. These include the authority to do the following: Make, amend, or revoke a will Contract a marriage in most states, although a handful of states allow it Vote (but the guardian may request a ballot on behalf of the principal) While the details may differ, the following rules apply [facility] to [facility]: Put It in Writing While some regions of the country accept oral POA grants, verbal instruction is not a reliable substitute for getting each of the lerma of contract attorney granted to your agent spelled out [id number]-aci-[id number] on paper. Written clarity helps to avoid arguments and confusion. Use the Proper Format Many variations of power of contract attorney forms exist. Some POAs are short-lived; others are meant to last until . Decide what lerma you wish to gabriela and prepare a POA specific to that desire. The POA must also satisfy the requirements of your state. To find a form that will be accepted by a court of law in the state in which you live, perform an internet search, check with an office-supply store or ask a local estate-planning professional to help you. The best option is to use an contract attorney. Identify the Parties The term for the person granting the POA is the "principal." The individual who receives the power of contract attorney is called either the "agent" or the "fombhahg-hf-cybq." Check whether your state requires that you use specific terminology. Delegate the Lerma A POA can be as broad or as limited as the principal wishes. However, each of the lerma granted must be clear, even if the principal grants the agent "general power of contract attorney." In other words, the principal cannot gabriela sweeping authority such as, I delegate all things having to do with my life. Specify Durability In most states, a power of contract attorney terminates if the principal is incapacitated. If this happens, the only way an agent can keep his or her lerma is if the POA was written with an indication that it is "durable," a designation that makes it last for the principal's lifetime unless the principal revokes it. Comment Review of Relevant I have reviewed the following items flora (where applicable) has been applied. Labs Laboratory Tests Test 01/22/20 13:00 01/22/20 13:27 01/22/20 17:50 01/22/20 19:02 White Blood Count 8.3 x10^3/uL (4.0-11.0) Red Blood Count 6.16 x10^6/uL (4.30-5.70) Hemoglobin 19.4 g/dL (13.0-17.5) Hematocrit 59.1 % (39.0-53.0) Mean Corpuscular Volume 96 fL (79-100) Mean Corpuscular Hemoglobin 32 pg (25-35) Mean Corpuscular Hemoglobin Concent 33 g/dL (31-37) Red Cell Distribution Width 15.1 % (11.5-14.5) Platelet Count 166 x10^3/uL (140-400) Neutrophils (%) (Auto) 70 % (31-73) Lymphocytes (%) (Auto) 19 % (24-48) Monocytes (%) (Auto) 9 % (0-9) Eosinophils (%) (Auto) 1 % (0-3) Basophils (%) (Auto) 1 % (0-3) Neutrophils # (Auto) 5.9 x10^3/uL (1.8-7.7) Lymphocytes # (Auto) 1.6 x10^3/uL (1.0-4.8) Monocytes # (Auto) 0.7 x10^3/uL (0.0-1.1) Eosinophils # (Auto) 0.1 x10^3/uL (0.0-0.7) Basophils # (Auto) 0.0 x10^3/uL (0.0-0.2) D-Dimer (Bonnie) 1.14 ug/mlFEU (0.00-0.50) Urine Collection Type Unknown Urine Color Yellow Urine Clarity Clear Urine pH 6.0 (<5.0-8.0) Urine Specific [place] 1.020 (1.000-1.030) Urine Protein >=300 mg/dL (NEG-TRACE) Urine Glucose (UA) Negative mg/dL (NEG) Urine Ketones (Stick) Negative mg/dL (NEG) Urine Blood Trace (NEG) Urine Nitrite Negative (NEG) Urine Bilirubin Negative (NEG) Urine Urobilinogen Dipstick 0.2 mg/dL (0.2 mg/dL) Urine Leukocyte Esterase Negative (NEG) Urine RBC Occ /HPF (0-2) Urine WBC 5-10 /HPF (0-4) Urine Squamous Epithelial Cells Mod /LPF Urine Transitional Epithelial Cells Occ /LPF Urine Renal Epithelial Cells Occ /LPF Urine Amorphous Sediment Present /HPF Urine Bacteria 0 /HPF (0-FEW) Urine Hyaline Casts Many /HPF Urine Granular Casts Few /HPF Urine Mucus Marked /LPF Sodium Level 137 mmol/L (136-145) Potassium Level 4.3 mmol/L (3.5-5.1) Chloride Level 101 mmol/L (98-107) Carbon Dioxide Level 35 mmol/L (21-32) Anion Gap 1 (6-14) Blood Urea Nitrogen 23 mg/dL (8-26) Creatinine 1.0 mg/dL (0.7-1.3) Estimated GFR (Cockcroft-Gault) 84.1 BUN/Creatinine Ratio 23 (6-20) Glucose Level 212 mg/dL (70-99) Calcium Level 9.3 mg/dL (8.5-10.1) Magnesium Level 1.8 mg/dL (1.8-2.4) Ferritin 150 ng/mL (26-388) Total Bilirubin 0.6 mg/dL (0.2-1.0) Aspartate Amino Transf (AST/SGOT) 22 U/L (15-37) Alanine Aminotransferase (ALT/SGPT) 17 U/L (16-63) Alkaline Phosphatase 66 U/L (46-116) Creatine Kinase 58 U/L (39-308) C-Reactive Protein, Quantitative 5.4 mg/L (0-3.3) Total Protein 5.9 g/dL (6.4-8.2) Albumin 2.3 g/dL (3.4-5.0) Albumin/Globulin Ratio 0.6 (1.0-1.7) Lipase 83 U/L (73-393) Arterial Blood pH 7.30 (7.35-7.45) Arterial Blood pCO2 at Patient Temp 76 mmHg (35-46) Arterial Blood pO2 at Patient Temp 70 mmHg (85-108) Arterial Blood HCO3 37 mmol/L (21-28) Arterial Blood Base Excess 7 mmol/L (-3-3) FiO2 28 Glucose (Fingerstick) 133 mg/dL (70-99) Test 01/23/20 07:35 O2 Saturation 87 % (92-99) Arterial Blood pH 7.37 (7.35-7.45) Arterial Blood pCO2 at Patient Temp 60 mmHg (35-46) Arterial Blood pO2 at Patient Temp 52 mmHg (85-108) Arterial Blood HCO3 34 mmol/L (21-28) Arterial Blood Base Excess 5 mmol/L (-3-3) FiO2 21 Laboratory Tests Test 01/22/20 13:00 01/22/20 13:27 01/22/20 17:50 01/22/20 19:02 White Blood Count 8.3 x10^3/uL (4.0-11.0) Red Blood Count 6.16 x10^6/uL (4.30-5.70) Hemoglobin 19.4 g/dL (13.0-17.5) Hematocrit 59.1 % (39.0-53.0) Mean Corpuscular Volume 96 fL (79-100) Mean Corpuscular Hemoglobin 32 pg (25-35) Mean Corpuscular Hemoglobin Concent 33 g/dL (31-37) Red Cell Distribution Width 15.1 % (11.5-14.5) Platelet Count 166 x10^3/uL (140-400) Neutrophils (%) (Auto) 70 % (31-73) Lymphocytes (%) (Auto) 19 % (24-48) Monocytes (%) (Auto) 9 % (0-9) Eosinophils (%) (Auto) 1 % (0-3) Basophils (%) (Auto) 1 % (0-3) Neutrophils # (Auto) 5.9 x10^3/uL (1.8-7.7) Lymphocytes # (Auto) 1.6 x10^3/uL (1.0-4.8) Monocytes # (Auto) 0.7 x10^3/uL (0.0-1.1) Eosinophils # (Auto) 0.1 x10^3/uL (0.0-0.7) Basophils # (Auto) 0.0 x10^3/uL (0.0-0.2) D-Dimer (Bonnie) 1.14 ug/mlFEU (0.00-0.50) Urine Collection Type Unknown Urine Color Yellow Urine Clarity Clear Urine pH 6.0 (<5.0-8.0) Urine Specific [place] 1.020 (1.000-1.030) Urine Protein >=300 mg/dL (NEG-TRACE) Urine Glucose (UA) Negative mg/dL (NEG) Urine Ketones (Stick) Negative mg/dL (NEG) Urine Blood Trace (NEG) Urine Nitrite Negative (NEG) Urine Bilirubin Negative (NEG) Urine Urobilinogen Dipstick 0.2 mg/dL (0.2 mg/dL) Urine Leukocyte Esterase Negative (NEG) Urine RBC Occ /HPF (0-2) Urine WBC 5-10 /HPF (0-4) Urine Squamous Epithelial Cells Mod /LPF Urine Transitional Epithelial Cells Occ /LPF Urine Renal Epithelial Cells Occ /LPF Urine Amorphous Sediment Present /HPF Urine Bacteria 0 /HPF (0-FEW) Urine Hyaline Casts Many /HPF Urine Granular Casts Few /HPF Urine Mucus Marked /LPF Sodium Level 137 mmol/L (136-145) Potassium Level 4.3 mmol/L (3.5-5.1) Chloride Level 101 mmol/L (98-107) Carbon Dioxide Level 35 mmol/L (21-32) Anion Gap 1 (6-14) Blood Urea Nitrogen 23 mg/dL (8-26) Creatinine 1.0 mg/dL (0.7-1.3) Estimated GFR (Cockcroft-Gault) 84.1 BUN/Creatinine Ratio 23 (6-20) Glucose Level 212 mg/dL (70-99) Calcium Level 9.3 mg/dL (8.5-10.1) Magnesium Level 1.8 mg/dL (1.8-2.4) Ferritin 150 ng/mL (26-388) Total Bilirubin 0.6 mg/dL (0.2-1.0) Aspartate Amino Transf (AST/SGOT) 22 U/L (15-37) Alanine Aminotransferase (ALT/SGPT) 17 U/L (16-63) Alkaline Phosphatase 66 U/L (46-116) Creatine Kinase 58 U/L (39-308) C-Reactive Protein, Quantitative 5.4 mg/L (0-3.3) Total Protein 5.9 g/dL (6.4-8.2) Albumin 2.3 g/dL (3.4-5.0) Albumin/Globulin Ratio 0.6 (1.0-1.7) Lipase 83 U/L (73-393) Arterial Blood pH 7.30 (7.35-7.45) Arterial Blood pCO2 at Patient Temp 76 mmHg (35-46) Arterial Blood pO2 at Patient Temp 70 mmHg (85-108) Arterial Blood HCO3 37 mmol/L (21-28) Arterial Blood Base Excess 7 mmol/L (-3-3) FiO2 28 Glucose (Fingerstick) 133 mg/dL (70-99) Test 01/23/20 07:35 O2 Saturation 87 % (92-99) Arterial Blood pH 7.37 (7.35-7.45) Arterial Blood pCO2 at Patient Temp 60 mmHg (35-46) Arterial Blood pO2 at Patient Temp 52 mmHg (85-108) Arterial Blood HCO3 34 mmol/L (21-28) Arterial Blood Base Excess 5 mmol/L (-3-3) FiO2 21 Medications Current Medications Iohexol (Omnipaque 350 Mg/ml) 100 ml STK-MED ONCE .ROUTE ; Start 01/22/20 at 14:22; Stop 01/22/20 at 14:22; Status DC Ondansetron HCl (Zofran) 4 mg PRN Q4HRS PRN IV NAUSEA/VOMITING; Start 01/22/20 at 16:30 Acetaminophen (Tylenol) 650 mg PRN Q4HRS PRN PO TEMP OVER 100.4F OR MILD PAIN; Start 01/22/20 at 16:30 Docusate Sodium (Colace) 100 mg PRN BID PRN PO HARD STOOLS; Start 01/22/20 at 16:30 Albuterol Sulfate (Ventolin Neb Soln) 2.5 mg PRN Q4HRS PRN NEB SHORTNESS OF BREATH; Start 01/22/20 at 16:30 Guaifenesin (Robitussin) 200 mg PRN Q4HRS PRN PO COUGH; Start 01/22/20 at 16:30 Lorazepam (Ativan) 0.5 mg PRN Q4HRS PRN PO ANXIETY / AGITATION Last administered on 01/22/20at 20:56; Start 01/22/20 at 16:30 Enoxaparin Sodium (Lovenox 40mg Syringe) 40 mg Q24H SQ ; Start 01/22/20 at 16:30; Status UNV Enoxaparin Sodium (Lovenox 60mg Syringe) 60 mg Q12HR SQ Last administered on 04/01at 20:13; Start 01/22/20 at 21:00 Active Scripts Active Reported No Known Medications Prior To Admisstion (Info) Each 1 Each 1X Vitals/I & O Vital Sign - Last 24 Hours 01/22/20 01/22/20 01/22/20 01/22/20 13:30 14:30 15:30 16:30 Temp 98.3 98.3 Pulse 103 64 74 66 Resp 22 18 18 18 B/P (MAP) 138/78 (98) 135/77 (96) 145/65 (91) 123/61 (81) Pulse Ox 97 97 97 98 O2 Delivery Nasal Cannula Nasal Cannula Nasal Cannula Nasal Cannula O2 Flow Rate 4.0 4.0 4.0 4.0 01/22/20 01/22/20 01/22/20 01/22/20 17:00 17:35 18:15 19:05 Pulse 72 Resp 18 B/P (MAP) 136/103 (114) Pulse Ox 97 97 98 98 O2 Delivery Nasal Cannula BiPAP/CPAP BiPAP/CPAP O2 Flow Rate 4.0 01/22/20 01/22/20 01/22/20 01/22/20 19:40 19:58 22:50 23:14 Temp 98.5 97.7 98.5 97.7 Pulse 88 100 Resp 24 24 B/P (MAP) 161/124 (136) 143/97 (112) Pulse Ox 91 92 95 O2 Delivery Bi-pap BiPAP/CPAP BiPAP/CPAP BiPAP/CPAP 01/23/20 01/23/20 01/23/20 03:06 03:45 07:15 Temp 98.1 98.1 Pulse 89 92 Resp 24 24 B/P (MAP) 161/79 (106) 137/81 (99) Pulse Ox 93 93 89 O2 Delivery BiPAP/CPAP BiPAP/CPAP Nasal Cannula O2 Flow Rate 1.0 Intake and Output 01/22/20 01/22/20 01/23/20 15:00 23:00 07:00 Intake Total 0 ml Balance 0 ml Justicifation of Admission Dx: Justifications for Admission: Justification of Admission Dx: Yes Respiratory Failure: Severe Resp Distress SHILOH MCPHERSON MD Jan 23, 2020 10:27
[2020-01-23 11:23] VITALS: BP 147/78
[2020-01-23 15:37] VITALS: BP 126/80
--- NOTE | 2020-01-23 17:13 | NUR ---
SPOKE WITH THE PT IN DEPTH IN REGARDS TO STAYING IN THE HOSPITAL AND RECEIVING CARE. COVID RESULTS ARE STILL PENDING. PT STATES THAT HE DOES NOT HAVE THE INSURANCE AND CAN DO THIS AT HOME. EXPLAINED TO THE PT THAT NEEDING SUPPLEMENTAL OXYGEN IS REQUIRED AT THIS TIME AND THEY WOULD LIKE HIM TO STAY. PT STATES THAT IF HE FEELS ANY WORSE THAT HE WILL COME BACK TO THE HOSPITAL. STAFF TRIED TO EDUCATE THE IMPORTANCE OF STAYING TO THE PT WELL. DR MCPHERSON NOTIFIED. NURSING ROUTE SERVICE MANAGER AND CHARGE NURSE NOTIFIED WELL. WILL CALL SECURITY FOR ESCORT TO PATIENTS RIDE FROM FAMILY.
--- NOTE | 2020-01-23 18:37 | PDOC3 ---
Discharge Summary Date of Admission: Jan 22, 2020 Date of Discharge: Jan 23, 2020 Follow-Up: Other (left ama) Admitting Diagnosis comment: discharge dx Assessment/Plan Acute hypercapnic respiratory failure Morbid obesity Polycythemia vera? Psoriasis Obesity hypoventilation syndrome Right lower lung opacities overlying the fluid are in part atelectasis though an infectious infiltrate at this location is not excluded./ pui Plan EPO level Tom 2 mutation to evaluate for possible myeloproliferative disorder consult pulmonology for the acute hypercapnic respiratory failure Patient certainly will require evaluation moving forward by a bariatric surgery team given that his life expectancy will certainly be quite short if he does not lose weight BiPAP as per senior recruitment consultant DVT prophylaxis with Lovenox left ama 9/ pm needs dpoa 39 min pt exam, chart review, > 50% of time spent with exam, chart review, pt care coordination Justifications for Admission Justifications for Admission Other Justification HYPERCAPNIC RESP FAILURE History of Present Illness History of Present Illness Identification/Chief Complaint Chief Complaint I could not breathe Source Source: Chart review, Patient History of Present Illness History of Present Illness Patient is a 39-year-old gentleman with past medical history of psoriasis which is quite extensive who was in his usual state of health until approximately 5 days prior to his admission. The patient complained of generalized edema and feeling bloated. The patient even took stool softeners in order to have a bowel movement since he thought that he was constipated. The patient is morbidly obese with a BMI of 67. The patient denies any sick contacts no fever chills no upper respiratory tract infections. The patient laboratory data has been reviewed and CAT scan of his chest was done with no obvious saddle embolism to explain his symptoms. The patient was found to be in acute respiratory failure with hypercapnia reason why we were asked to admit the patient for further evaluation and treatment. At the time my evaluation the patient is awake alert oriented and in no acute distress. The patient is able to answer all questions. Patient denies any nausea vomiting no diarrhea he denies any changes to his diet. I have explained the plan of care in detail and answer all his concerns to the best of my abilit ies. He will be investigated for COVID-19 given the elevated d-dimer and changes to his chest x-ray noted with groundglass appearance. Very low suspicion at this point. His respiratory abnormality is most likely secondary to his morbid obesity Past Medical History Past Medical History Psoriasis Past Surgical History Past Surgical History: No pertinent history Family History Family History: No Significant Social History Smoke: # pack years (15) ALCOHOL: none Drugs: None Vitals Vitals Vital Signs Date Time Temp Pulse Resp B/P (MAP) Pulse Ox O2 Delivery O2 Flow Rate FiO2 01/23/20 07:15 98.1 92 24 137/81 (99) 89 Nasal Cannula 1.0 98.1 Physical Exam Physical Exam Physical Exam GEN.: No apparent distress. Alert and oriented. HEENT: Head is normocephalic, atraumatic NECK: Supple. LUNGS: Clear to auscultation. HEART: RRR, S1, S2 present. Peripheral pulses intact ABDOMEN: Soft, nontender. Positive bowel sounds. EXTREMITIES: Without any cyanosis. NEUROLOGIC: Normal speech, normal tone PSYCHIATRIC: Normal affect, normal mood. SKIN: psoriatic lesions, several General: Alert, Oriented X3, Cooperative, No acute distress Abdomen: Soft Extremities: No cyanosis Skin: No significant lesion, Other (psoriatic chs elbows, upper arms, chest) Labs LABS Study: CT CHEST WITH CONTRAST - PULMONARY ANGIOGRAM History: Elevated d-dimer. Hypoxia. Tachycardia. Pulmonary embolism. Comparison: None. Technique: Helical CT of the chest performed after the administration of 100 cc Omnipaque 350 intravenous contrast and timed for angiographic evaluation of the pulmonary arteries per PE protocol. Coronal and sagittal 3D MIP reformations were obtained. One or more of the following individualized dose reduction techniques were utilized for this examination: 1. Automated exposure control 2. Adjustment of the mA and/or kV according to patient size 3. Use of iterative reconstruction technique. Findings: Degraded study due to patient body habitus. Pulmonary Arteries: Significantly limited assessment for pulmonary emboli due to bolus timing in conjunction with patient body habitus. No saddle or central pulmonary embolism is seen but the study is nondiagnostic for more peripheral emboli. Dilated main pulmonary artery measuring 3.7 cm transverse. Heart/Systemic Vasculature: Nonaneurysmal aorta. The visualized great vessels are unremarkable. Somewhat asymmetric prominence of the right heart chambers relative to the left, image 84 series 4. Mediastinum: No lymph node is seen that meets pathologic criteria based on size. Small pericardial effusion. Lungs: Small pleural effusion on the right. There may be trace pleural fluid on the left. Patchy opacities overlying the pleural fluid at the right lower lung is in part passive atelectasis though some of the opacities are not typical of volume loss. Minimal volume loss at the left lung base. No central airway opacification. Neck/Axilla/Body Wall: The visualized thyroid is unremarkable. Several lymph nodes at both axilla are enlarged. Body wall edema progressing in extent at the lower chest through the upper abdomen. Upper Abdomen: Upper abdominal ascites seen adjacent to the liver and spleen. There appears to be some fluid surrounding the tail of the pancreas. Bones: No acute or aggressive osseous process is identified. Scattered thoracic discogenic arthrosis. Miscellaneous: None. IMPRESSION: 1. Essentially nondiagnostic evaluation for pulmonary emboli due to a combination of patient body habitus and bolus timing. No obvious saddle or main pulmonary artery embolism but more distally emboli cannot be excluded. 2. Dilated main pulmonary artery and asymmetric prominence of the right heart chambers often seen with pulmonary hypertension. 3. Small right pleural effusion and possible trace pleural fluid on the left. Right lower lung opacities overlying the fluid are in part atelectasis though an infectious infiltrate at this location is not excluded. 4. Body wall edema and upper abdominal ascites. 5. Prominent bilateral axillary lymph nodes are most likely reactive unless there is any history of malignancy. Electronically signed by: LIANET PATTERSON MD (01/22/2020 3:56 PM) [id number] FINAL DIAGNOSIS Problems Medical Problems: (1) Elevated d-dimer Status: Acute (2) Person under investigation for COVID-19 Status: Acute (3) SOB (shortness of breath) Status: Acute Brief Hospital Course Mr. Graf is a 39 old [sex] who presented with [ HYPERCAPNIC RESP FAILURE] CONDITION AT DISCHARGE: Comment (LEFT AMA) Discharge Medications Current Medications Iohexol (Omnipaque 350 Mg/ml) 100 ml STK-MED ONCE .ROUTE ; Start 01/22/20 at 14:22; Stop 01/22/20 at 14:22; Status DC Ondansetron HCl (Zofran) 4 mg PRN Q4HRS PRN IV NAUSEA/VOMITING; Start 01/22/20 at 16:30 Acetaminophen (Tylenol) 650 mg PRN Q4HRS PRN PO TEMP OVER 100.4F OR MILD PAIN Last administered on 01/23/20at 11:17; Start 01/22/20 at 16:30 Docusate Sodium (Colace) 100 mg PRN BID PRN PO HARD STOOLS; Start 01/22/20 at 16:30 Albuterol Sulfate (Ventolin Neb Soln) 2.5 mg PRN Q4HRS PRN NEB SHORTNESS OF BREATH; Start 01/22/20 at 16:30 Guaifenesin (Robitussin) 200 mg PRN Q4HRS PRN PO COUGH; Start 01/22/20 at 16:30 Lorazepam (Ativan) 0.5 mg PRN Q4HRS PRN PO ANXIETY / AGITATION Last administered on 01/22/20at 20:56; Start 01/22/20 at 16:30 Enoxaparin Sodium (Lovenox 40mg Syringe) 40 mg Q24H SQ ; Start 01/22/20 at 16:30; Status UNV Enoxaparin Sodium (Lovenox 60mg Syringe) 60 mg Q12HR SQ Last administered on 01/23/20at 11:17; Start 01/22/20 at 21:00 Active Scripts Active Reported No Known Medications Prior To Admisstion (Info) Each 1 Each 1X Vital Signs Vital Signs Date Time Temp Pulse Resp B/P (MAP) Pulse Ox O2 Delivery O2 Flow Rate FiO2 01/23/20 15:37 98.1 81 24 126/80 (95) 86 Nasal Cannula 1.0 98.1 Labs Laboratory Tests Test 01/22/20 13:00 01/22/20 13:27 01/22/20 17:50 01/22/20 19:02 White Blood Count 8.3 x10^3/uL (4.0-11.0) Red Blood Count 6.16 x10^6/uL (4.30-5.70) Hemoglobin 19.4 g/dL (13.0-17.5) Hematocrit 59.1 % (39.0-53.0) Mean Corpuscular Volume 96 fL (79-100) Mean Corpuscular Hemoglobin 32 pg (25-35) Mean Corpuscular Hemoglobin Concent 33 g/dL (31-37) Red Cell Distribution Width 15.1 % (11.5-14.5) Platelet Count 166 x10^3/uL (140-400) Neutrophils (%) (Auto) 70 % (31-73) Lymphocytes (%) (Auto) 19 % (24-48) Monocytes (%) (Auto) 9 % (0-9) Eosinophils (%) (Auto) 1 % (0-3) Basophils (%) (Auto) 1 % (0-3) Neutrophils # (Auto) 5.9 x10^3/uL (1.8-7.7) Lymphocytes # (Auto) 1.6 x10^3/uL (1.0-4.8) Monocytes # (Auto) 0.7 x10^3/uL (0.0-1.1) Eosinophils # (Auto) 0.1 x10^3/uL (0.0-0.7) Basophils # (Auto) 0.0 x10^3/uL (0.0-0.2) D-Dimer (Bonnie) 1.14 ug/mlFEU (0.00-0.50) Urine Collection Type Unknown Urine Color Yellow Urine Clarity Clear Urine pH 6.0 (<5.0-8.0) Urine Specific [place] 1.020 (1.000-1.030) Urine Protein >=300 mg/dL (NEG-TRACE) Urine Glucose (UA) Negative mg/dL (NEG) Urine Ketones (Stick) Negative mg/dL (NEG) Urine Blood Trace (NEG) Urine Nitrite Negative (NEG) Urine Bilirubin Negative (NEG) Urine Urobilinogen Dipstick 0.2 mg/dL (0.2 mg/dL) Urine Leukocyte Esterase Negative (NEG) Urine RBC Occ /HPF (0-2) Urine WBC 5-10 /HPF (0-4) Urine Squamous Epithelial Cells Mod /LPF Urine Transitional Epithelial Cells Occ /LPF Urine Renal Epithelial Cells Occ /LPF Urine Amorphous Sediment Present /HPF Urine Bacteria 0 /HPF (0-FEW) Urine Hyaline Casts Many /HPF Urine Granular Casts Few /HPF Urine Mucus Marked /LPF Sodium Level 137 mmol/L (136-145) Potassium Level 4.3 mmol/L (3.5-5.1) Chloride Level 101 mmol/L (98-107) Carbon Dioxide Level 35 mmol/L (21-32) Anion Gap 1 (6-14) Blood Urea Nitrogen 23 mg/dL (8-26) Creatinine 1.0 mg/dL (0.7-1.3) Estimated GFR (Cockcroft-Gault) 84.1 BUN/Creatinine Ratio 23 (6-20) Glucose Level 212 mg/dL (70-99) Calcium Level 9.3 mg/dL (8.5-10.1) Magnesium Level 1.8 mg/dL (1.8-2.4) Ferritin 150 ng/mL (26-388) Total Bilirubin 0.6 mg/dL (0.2-1.0) Aspartate Amino Transf (AST/SGOT) 22 U/L (15-37) Alanine Aminotransferase (ALT/SGPT) 17 U/L (16-63) Alkaline Phosphatase 66 U/L (46-116) Creatine Kinase 58 U/L (39-308) C-Reactive Protein, Quantitative 5.4 mg/L (0-3.3) Total Protein 5.9 g/dL (6.4-8.2) Albumin 2.3 g/dL (3.4-5.0) Albumin/Globulin Ratio 0.6 (1.0-1.7) Lipase 83 U/L (73-393) Arterial Blood pH 7.30 (7.35-7.45) Arterial Blood pCO2 at Patient Temp 76 mmHg (35-46) Arterial Blood pO2 at Patient Temp 70 mmHg (85-108) Arterial Blood HCO3 37 mmol/L (21-28) Arterial Blood Base Excess 7 mmol/L (-3-3) FiO2 28 Glucose (Fingerstick) 133 mg/dL (70-99) Test 01/23/20 07:35 O2 Saturation 87 % (92-99) Arterial Blood pH 7.37 (7.35-7.45) Arterial Blood pCO2 at Patient Temp 60 mmHg (35-46) Arterial Blood pO2 at Patient Temp 52 mmHg (85-108) Arterial Blood HCO3 34 mmol/L (21-28) Arterial Blood Base Excess 5 mmol/L (-3-3) FiO2 21 Laboratory Tests Test 01/22/20 19:02 01/23/20 07:35 Glucose (Fingerstick) 133 mg/dL (70-99) O2 Saturation 87 % (92-99) Arterial Blood pH 7.37 (7.35-7.45) Arterial Blood pCO2 at Patient Temp 60 mmHg (35-46) Arterial Blood pO2 at Patient Temp 52 mmHg (85-108) Arterial Blood HCO3 34 mmol/L (21-28) Arterial Blood Base Excess 5 mmol/L (-3-3) FiO2 21 Allergies Allergies Coded Allergies Type Severity Reaction Last Updated Verified naproxen Allergy Intermediate 01/23/20 Yes Disposition/Orders: Other (left ama D/W RN ) Justicifation of Admission Dx: Justifications for Admission: Justification of Admission Dx: Yes Respiratory Failure: Severe Resp Distress SHILOH MCPHERSON MD Jan 23, 2020 18:37
--- NOTE | 2020-01-25 08:35 | EKG ---
[facility] [address] [place] [address] Test Date: 2020-01-22 Test Time: 13:16:39 Pat Name: EVELINE VANCE Department: Room: Gender: M Wreath Maker: : [id number] Requested By: SHELBY WHITE Order Number: [id number] Reading MD: Measurements Intervals [place] Rate: 102 P: 31 [place]: 162 QRS: 131 QRSD: 70 T: 0 QT: 276 QTc: 363 Interpretive Statements SINUS TACHYCARDIA ABNORMAL RIGHT AXIS DEVIATION LOW VOLTAGE QRS(T) CONTOUR ABNORMALITY CONSISTENT WITH ANTEROSEPTAL INFARCT AGE UNDETERMINED ABNORMAL ECG RI6.02 No previous ECG available for comparison
== END 2020-01-23 18:10 | disposition left against medical advice (07) | DRG 189 ==
LOC: ER 12:03 → 6 SOUTH 15:55
PROVIDERS: ADMIT Internal Medicine; ATTEND Internal Medicine
PROC: 5A09357 Assistance with Respiratory Ventilation, Less than 24 Consecutive Hours, Continuous Positive Airway Pressure (ICD-10-PCS; principal; 2020-01-22)
DX: J96.02 Acute respiratory failure with hypercapnia (principal); I50.31 Acute diastolic (congestive) heart failure; I26.99 Other pulmonary embolism without acute cor pulmonale; E66.2 Morbid (severe) obesity with alveolar hypoventilation; Z68.44 Body mass index [BMI] 60.0-69.9, adult; J98.11 Atelectasis; C94.6 Myelodysplastic disease, not elsewhere classified; R18.8 Other ascites; Z20.828 Contact with and (suspected) exposure to other viral communicable diseases; F17.200 Nicotine dependence, unspecified, uncomplicated; L40.9 Psoriasis, unspecified; J44.9 Chronic obstructive pulmonary disease, unspecified; I11.0 Hypertensive heart disease with heart failure; D45 Polycythemia vera; I27.20 Pulmonary hypertension, unspecified; Z88.6 Allergy status to analgesic agent; Z82.49 Family history of ischemic heart disease and other diseases of the circulatory system
CPT/HCPCS: 36415; 36600; 71045; 71275; 80053; 81001; 82550; 82728; 82805; 82962; 83690; 83735; 85025; 85379; 86140; 87086; 93005; 93925; 94660; 99285; G0238; J1650; G0378; U0003-CS